=== PATIENT | female | born 1985 | race Caucasian/White ===

== ENCOUNTER 2019-09-28 11:28 | Emergency (ER) | payer MEDICAID ==
[~2019-09-28] VITALS: Ht 170.2 cm; Wt 76.1 kg
[~2019-09-28 11:28] MED LIST: GUAI120015 PO
[2019-09-28 11:32] VITALS: BP 128/77
== END 2019-09-28 13:55 | disposition left against medical advice (07) ==
LOC: ER 11:29
DX: M25.511 Pain in right shoulder (principal); Z53.21 Procedure and treatment not carried out due to patient leaving prior to being seen by health care provider

== ENCOUNTER 2019-09-29 18:30 | Emergency (ER) | payer MEDICAID | END 2019-09-29 20:58 | disposition left against medical advice (07) | LOC: ER 18:30 | DX: M25.519 Pain in unspecified shoulder (principal); Z53.21 Procedure and treatment not carried out due to patient leaving prior to being seen by health care provider ==

== ENCOUNTER 2019-09-29 23:44 | Emergency (ER) | payer MEDICAID ==
[~2019-09-29] VITALS: Ht 170.2 cm; Wt 78.0 kg
[2019-09-30] MEDS ORDERED: acetaminophen 325mg tablet PO ONE (02:05)
[2019-09-30] MEDS ORDERED: ibuprofen tablet 400 MG TABLET PO ONE (02:05)
[2019-09-30] MEDS ORDERED: ondansetron 4mg rapidly disintigrating tab PO ONE (02:05)
[2019-09-30 02:47] VITALS: BP 124/77
== END 2019-09-30 02:48 | disposition home or self-care (01) ==
LOC: ER 23:45
DX: M25.511 Pain in right shoulder (principal); M54.2 Cervicalgia; Z98.890 Other specified postprocedural states; Z88.0 Allergy status to penicillin; Z79.899 Other long term (current) drug therapy
CPT/HCPCS: 73030; 99284

== ENCOUNTER 2019-10-04 16:17 | Emergency (ER) | payer MEDICAID ==
[~2019-10-04] VITALS: Ht 170.2 cm; Wt 81.0 kg
[2019-10-04 16:20] VITALS: BP 141/86
[2019-10-04] MEDS ORDERED: cyclobenzaprine 10mg tablet PO ONE (17:25)
[2019-10-04] MEDS: LIDOcaine 1% 30ml preserv. free vial IJ STA ×2 (17:48→17:51)
[2019-10-04] MEDS ORDERED: LIDO700A32 TOP (18:11)
== END 2019-10-04 18:19 | disposition home or self-care (01) ==
LOC: ER 16:17
DX: M25.511 Pain in right shoulder (principal); R07.89 Other chest pain; Z98.890 Other specified postprocedural states; Z88.0 Allergy status to penicillin; Z79.899 Other long term (current) drug therapy
CPT/HCPCS: 20552; 71045; 99284; J2001